=== PATIENT | male | born 1995 | race Caucasian/White ===

== ENCOUNTER 2018-03-11 12:51 | Emergency (ER) | payer MEDICAID ==
[~2018-03-11] VITALS: Ht 172.7 cm; Wt 104.3 kg
[2018-03-11 12:58] VITALS: Ht 172.7 cm; Wt 104.3 kg
[2018-03-11 13:25] VITALS: BP 135/72
== END 2018-03-11 13:25 | disposition home or self-care (01) ==
LOC: ED 12:51
DX: S41.111A Laceration without foreign body of right upper arm, initial encounter (principal); W22.8XXA Striking against or struck by other objects, initial encounter; Y93.89 Activity, other specified; Y92.89 Other specified places as the place of occurrence of the external cause; Y99.8 Other external cause status
CPT/HCPCS: 90715